=== PATIENT | female | born 1935 | race Caucasian/White ===

== ENCOUNTER 2017-05-21 18:32 | Emergency (ER) | payer MEDICARE ==
[~2017-05-21] VITALS: Ht 167.6 cm; Wt 85.0 kg
[2017-05-21 18:58] VITALS: BP 211/85; PULSE 76; RESP 20; TEMP 98.8; O2SAT 98
[2017-05-21] MEDS ORDERED: UNK BP MED (19:07)
[2017-05-21] MEDS ORDERED: OMEP40CA2 (19:09)
[2017-05-21] MEDS ORDERED: SODIUM CHLORIDE 0.9% FLUSH 10 ML FLUSH IVF PRN (19:30)
--- NOTE | 2017-05-21 20:12 | PD ---
HPI Chief Complaint: Fall Time Seen by Provider: 19:21 Travel History International Travel<30 days: No Contact w/Intl Traveler<30days: No Traveled to known affect area: No History of Present Illness HPI Patient is an 81-year-old female presents emergency department for evaluation of headache and high blood pressure. Patient Slovak only speaker translation services used to obtain her history. Patient quite pleasant, she is concerned because her son had an aneurysm in his head which ruptured and she wants to make sure she does not have one. She states that she was vacuuming and then fell backwards losing her balance but denies any syncope, she states she first landed on her bottom and then hit her head. She states that she has a little bruise but did see some stars. She states that she has been on medicine for blood pressure in the past but has not taken in several months because she does not have any. Denies any chest pain shortness of breath syncope abdominal pain nausea vomiting neck pain or extremity pain. Symptoms mild, started just prior to arrival, context as a fall, associated signs and symptoms as above PFSH Past Medical History Narrative Medical Hypertension, arthritis, GERD Past Surgical History Surgical History: Unable to Obtain Social History Tobacco Use: No Allergies-Medications (Allergen,Severity, Reaction): Coded Allergies: Penicillins (Verified Allergy, Severe, 05/21/17) Reported Meds & Prescriptions Reported Meds & Active Scripts Active Hydrochlorothiazide 12.5 Mg Tab 12.5 Mg PO DAILY Reported Omeprazole 40 Mg Cap Unknown Dose DAILY [Unk Bp Med] Review of Systems Except as stated in HPI: all other systems reviewed are Neg Physical Exam Narrative GENERAL: Well-developed well-nourished in no obvious distress SKIN: Focused skin assessment warm/dry. HEAD: Atraumatic. Normocephalic. EYES: Pupils equal and round. No scleral icterus. No injection or drainage. ENT: No nasal bleeding or discharge. Mucous membranes pink and moist. NECK: Trachea midline. No JVD. CARDIOVASCULAR: Regular rate and rhythm. No murmur appreciated. RESPIRATORY: No accessory muscle use. Clear to auscultation. Breath sounds equal bilaterally. GASTROINTESTINAL: Abdomen soft, non-tender, nondistended. Hepatic and splenic margins not palpable. MUSCULOSKELETAL: No obvious deformities. No clubbing. No cyanosis. No edema. NEUROLOGICAL: Awake and alert. Cranial nerves II through XII grossly intact and nonfocal, 5 out of 5 strength in all 4 extremities, cerebellar testing negative. PSYCHIATRIC: Appropriate mood and affect; insight and judgment normal. Data Data Last Documented VS Vital Signs Date Time Temp Pulse Resp B/P (MAP) Pulse Ox O2 Delivery O2 Flow Rate FiO2 05/22/17 00:28 05/21/17 23:49 75 16 96 Room Air 05/21/17 18:58 98.8 Orders Orders Electrocardiogram (05/21/17 19:28) Complete Blood Count With Diff (05/21/17 19:28) Comprehensive Metabolic Panel (05/21/17:28) Troponin I (05/21/17:28) Urinalysis - C+S If Indicated (05/21/17 19:28) Ct Brain W/O Iv Contrast(Rout) (05/21/17 19:28) Ct Cerv Spine W/O Contrast (05/21/17 19:28) Ecg Monitoring (05/21/17:28) Iv Access Insert/Monitor (05/21/17:28) Oximetry (05/21/17 19:28) Sodium Chloride 0.9% Flush (Ns Flush) (05/21/17 19:30) Acetaminophen (Tylenol) (05/21/17 21:45) Clonidine (Catapres) (05/21/17 21:45) Urine Culture (05/21/17 21:30) Ed Discharge Order (05/22/17 00:20) Labs Laboratory Tests Test 05/21/17 20:45 05/21/17 21:30 White Blood Count 8.3 TH/MM3 Red Blood Count 4.43 MIL/MM3 Hemoglobin 13.3 GM/DL Hematocrit 38.9 % Mean Corpuscular Volume 88.0 FL Mean Corpuscular Hemoglobin 30.0 PG Mean Corpuscular Hemoglobin Concent 34.1 % Red Cell Distribution Width 14.6 % Platelet Count 183 TH/MM3 Mean Platelet Volume 9.8 FL Neutrophils (%) (Auto) 61.3 % Lymphocytes (%) (Auto) 28.2 % Monocytes (%) (Auto) 6.7 % Eosinophils (%) (Auto) 3.0 % Basophils (%) (Auto) 0.8 % Neutrophils # (Auto) 5.1 TH/MM3 Lymphocytes # (Auto) 2.3 TH/MM3 Monocytes # (Auto) 0.6 TH/MM3 Eosinophils # (Auto) 0.2 TH/MM3 Basophils # (Auto) 0.1 TH/MM3 CBC Comment DIFF FINAL Differential Comment Blood Urea Nitrogen 18 MG/DL Creatinine 0.90 MG/DL Random Glucose 99 MG/DL Total Protein 6.8 GM/DL Albumin 3.1 GM/DL Calcium Level 8.6 MG/DL Alkaline Phosphatase 157 U/L Aspartate Amino Transf (AST/SGOT) 17 U/L Alanine Aminotransferase (ALT/SGPT) 13 U/L Total Bilirubin 0.3 MG/DL Sodium Level 143 MEQ/L Potassium Level 3.6 MEQ/L Chloride Level 109 MEQ/L Carbon Dioxide Level 26.4 MEQ/L Anion Gap 8 MEQ/L Estimat Glomerular Filtration Rate 60 ML/MIN Troponin I LESS THAN 0.02 NG/ML Urine Color YELLOW Urine Turbidity HAZY Urine pH 5.5 Urine Specific [place] 1.014 Urine Protein NEG mg/dL Urine Glucose (UA) NEG mg/dL Urine Ketones NEG mg/dL Urine Occult Blood NEG Urine Nitrite POS Urine Bilirubin NEG Urine Urobilinogen LESS THAN 2.0 MG/DL Urine Leukocyte Esterase LARGE Urine RBC 1 /hpf Urine WBC 63 /hpf Urine WBC Clumps RARE Urine Squamous Epithelial Cells 2 /hpf Urine Bacteria MOD /hpf Microscopic Urinalysis Comment CULTURE INDICATED MDM Medical Decision Making Medical Screen Exam Complete: Yes Emergency Medical Condition: Yes Differential Diagnosis Head injury, neck injury, hypertensive emergency unlikely, occult subarachnoid hemorrhage extremely unlikely Narrative Course Patient roomed in the emergency department, she appears well and in no obvious distress. Pain medicine given, clonidine, she is sleeping soundly on reassessment, blood pressure is better. CT head and C-spine are negative for acute injury Last [address] 05/21/171927 Signed Impressions: Service Date/Time: Sunday, May 21, 2017 21:05 - CONCLUSION: 1. No acute intracranial abnormalities. Scott Tamez MD Cervical Spine CT 05/21/171927 Signed Impressions: Service Date/Time: Sunday, May 21, 2017 21:05 - CONCLUSION: 1. No acute bony abnormalities. No significant canal stenosis. Moderate facet arthropathy. No prevertebral soft tissue swelling. Scott Tamez MD Patient was reassured, family members come to pick her up. Discussed return to ED criteria follow-up with primary care physician. I will start her on low- dose hydrochlorothiazide. Diagnosis Primary Impression: Headache Additional Impression: Hypertension Med/Other Pt SpecificInfo: Prescription(s) given Scripts Hydrochlorothiazide (Hydrochlorothiazide) 12.5 Mg Tab 12.5 MG PO DAILY, #30 TAB 0 Refills Prov: Gentry Raphael MD 05/22/17 Disposition: 01 DISCHARGE HOME Condition: Stable Gentry aRphael MD May 21, 2017 20:12
[2017-05-21 20:55] LABS: AUTOMATED NEUTROPHIL # 5.1 TH/MM3 (1.8-7.7); BASOPHIL # 0.1 TH/MM3 (0-0.2); BASOPHIL % 0.8 % (0.0-2.0); EOSINOPHIL # 0.2 TH/MM3 (0-0.4); HEMATOCRIT 38.9 % (35.0-46.0); HEMOGLOBIN 13.3 GM/DL (11.6-15.3); LYMPH % 28.2 % (9.0-44.0); LYMPHOCYTE # 2.3 TH/MM3 (1.0-4.8); MEAN CORPUSCULAR HGB CONC 34.1 % (32.0-36.0); MEAN PLATELET VOLUME 9.8 FL (7.0-11.0); MONO % 6.7 % (0.0-8.0); MONOCYTE # 0.6 TH/MM3 (0-0.9); NEUT % 61.3 % (16.0-70.0); PLATELET COUNT 183 TH/MM3 (150-450); RED BLOOD COUNT 4.43 MIL/MM3 (4.00-5.30); RED CELL DISTRIBUTION WIDTH 14.6 % (11.6-17.2); WHITE BLOOD COUNT 8.3 TH/MM3 (4.0-11.0)
[2017-05-21 21:17] LABS: ALT (GPT) 13 U/L (10-53)
[2017-05-21 21:21] LABS: ALKALINE PHOSPHATASE 157 U/L (45-117); TOTAL BILIRUBIN ADULT 0.3 MG/DL (0.2-1.0); TOTAL PROTEIN 6.8 GM/DL (6.4-8.2); TROPONIN I LESS THAN 0.02 NG/ML (0.02-0.05)
[2017-05-21 21:25] LABS: ALBUMIN 3.1 GM/DL (3.4-5.0); AST (GOT) 17 U/L (15-37); BICARBONATE 26.4 MEQ/L (21.0-32.0); BLOOD UREA NITROGEN 18 MG/DL (7-18); CALCIUM 8.6 MG/DL (8.5-10.1); CHLORIDE 109 MEQ/L (98-107); GLOMERULAR FILTRATION RATE 60 ML/MIN (>89); GLUCOSE,RANDOM 99 MG/DL (74-106); SODIUM (NA) 143 MEQ/L (136-145)
[2017-05-21] MEDS ORDERED: ACETAMINOPHEN 325 MG TAB PO ONE (21:45)
[2017-05-21] MEDS ORDERED: cloNIDine HCL 0.1 MG TAB PO ONE (21:45)
--- NOTE | 2017-05-21 21:47 | RADRPT ---
EXAM DATE/TIME: 05/21/2017 21:05 [facility] COMPARISON: No previous studies available for comparison. INDICATIONS : Trauma, fall. RADIATION DOSE: 56.35 CTDIvol (mGy) MEDICAL HISTORY : None SURGICAL HISTORY : None. ENCOUNTER: Initial ACUITY: 1 day PAIN SCALE: 1/10 LOCATION: cranial TECHNIQUE: Multiple contiguous axial images were obtained of the head. Using automated exposure control and adj ustment of the mA and/or kV according to patient size, radiation dose was kept as low as reasonably a chievable to obtain optimal diagnostic quality images. DICOM format image data is available electro nically for review and comparison. FINDINGS: CEREBRUM: The ventricles are normal for age. No evidence of midline shift, mass lesion, hemorrhage or acute in farction. No extra-axial fluid collections are seen. POSTERIOR FOSSA: The cerebellum and brainstem are intact. The 4th ventricle is midline. The cerebellopontine angle i s unremarkable. EXTRACRANIAL: The visualized portion of the orbits is intact. SKULL: The calvaria is intact. No evidence of skull fracture. CONCLUSION: 1. No acute intracranial abnormalities. Scott Tamez MD on May 21, 2017 at 21:44 Board Certified Radiologist. This report was verified electronically.
[2017-05-21 21:50] VITALS: BP 190/88; PULSE 72; RESP 18; O2SAT 97
--- NOTE | 2017-05-21 21:50 | RADRPT ---
EXAM DATE/TIME: 05/21/2017 21:05 [facility] COMPARISON: No previous studies available for comparison. INDICATIONS : Trauma, fall. RADIATION DOSE: 24.40 CTDIvol (mGy) MEDICAL HISTORY : None SURGICAL HISTORY : None. ENCOUNTER: Initial ACUITY: 1 day PAIN SCALE: 0/10 LOCATION: neck TECHNIQUE: Volumetric scanning of the cervical spine was performed. Multiplanar reconstructions in the sagittal, coronal and oblique axial planes were performed. Using automated exposure control and adjustment o f the mA and/or kV according to patient size, radiation dose was kept as low as reasonably achievable to obtain optimal diagnostic quality images. DICOM format image data is available electronically f or review and comparison. FINDINGS: VERTEBRAE: Normal vertebral body height. ALIGNMENT: No evidence of subluxation. C2-C3: The bony spinal canal is normal in size. No evidence of disc bulge or herniation. The neural forami na are bilaterally patent. C3-C4: The bony spinal canal is normal in size. No evidence of disc bulge or herniation. The neural forami na are bilaterally patent. C4-C5: The bony spinal canal is normal in size. No evidence of disc bulge or herniation. The neural forami na are bilaterally patent. C5-C6: The bony spinal canal is normal in size. No evidence of disc bulge or herniation. The neural forami na are bilaterally patent. C6-C7: The bony spinal canal is normal in size. No evidence of disc bulge or herniation. The neural forami na are bilaterally patent. C7-T1: The bony spinal canal is normal in size. No evidence of disc bulge or herniation. The neural forami na are bilaterally patent. CONCLUSION: 1. No acute bony abnormalities. No significant canal stenosis. Moderate facet arthropathy. No prevert ebral soft tissue swelling. Scott Tamez MD on May 21, 2017 at 21:45 Board Certified Radiologist. This report was verified electronically.
[2017-05-21 21:51] LABS: BILIRUBIN, URINE NEG (NEG); BLOOD, URINE NEG (NEG); GLUCOSE,URINE NEG (NEG); KETONE, URINE NEG (NEG); NITRITE,URINE POS (NEG); PH, URINE 5.5 (5.0-8.5); SQUAMOUS EPITHELIAL CELL URINE 2 /hpf (0-5); URINE COLOR YELLOW (YELLW/STRAW); URINE LEUKOCYTE ESTERASE LARGE (NEG); WHITE BLOOD CELL CLUMPS RARE
[2017-05-21 21:52] LABS: BACTERIA, URINE MOD /hpf
[2017-05-21 23:49] VITALS: BP 107/57; PULSE 75; RESP 16; O2SAT 96
[2017-05-22] MEDS ORDERED: HYDR12.56 PO (00:20)
--- NOTE | 2017-05-22 12:32 | EKG ---
Date Performed: 05/21/2017 Time Performed: 21:59:32 PTAGE: 81 years EKG: Sinus rhythm WITH SINUS ARRHYTHMIA LEFT VENTRICULAR HYPERTROPHY AND ST-T CHANGE POSSIBLE SEPTAL MYOCARDIAL INFARC TION ABNORMAL ECG NO PREVIOUS TRACING DOCTOR: Cruz Waters Interpretating Date/Time 05/22/2017 12:32:03
== END 2017-05-22 02:28 | disposition home or self-care (01) ==
LOC: NEPC 18:32
DX: R51 Headache (principal); B96.1 Klebsiella pneumoniae [K. pneumoniae] as the cause of diseases classified elsewhere; I49.8 Other specified cardiac arrhythmias; I51.7 Cardiomegaly; R94.31 Abnormal electrocardiogram [ECG] [EKG]; I10 Essential (primary) hypertension; W18.09XA Striking against other object with subsequent fall, initial encounter; Y93.E3 Activity, vacuuming; Z79.899 Other long term (current) drug therapy
CPT/HCPCS: 70450; 72125; 80053; 81001; 84484; 85025; 87077; 87086; 87186; 93005; 99285